=== PATIENT | female | born 1960 | race Caucasian/White ===

== ENCOUNTER 2025-01-13 10:05 | Outpatient (CLI) | payer OTHER | END 2025-01-13 10:06 | disposition home or self-care (01) | LOC: SCSMRI 10:05 → BICMRI 10:06 | PROVIDERS: ATTEND Family Medicine | DX: M47.22 Other spondylosis with radiculopathy, cervical region (principal); M48.061 Spinal stenosis, lumbar region without neurogenic claudication | CPT/HCPCS: 72141 ==

== ENCOUNTER 2025-05-29 08:11 | Outpatient (CLI) | payer OTHER ==
[2025-05-29 08:52] LABS: Estimated GFR - POC 95.0
[2025-05-29] MEDS ORDERED: Iopamidol 370 76% 100 ML VIAL ONE (11:08)
== END 2025-05-29 08:12 | disposition home or self-care (01) ==
LOC: CT 08:11
PROVIDERS: ATTEND Physician Assistant Medical
DX: K21.9 Gastro-esophageal reflux disease without esophagitis (principal); K29.70 Gastritis, unspecified, without bleeding; K44.9 Diaphragmatic hernia without obstruction or gangrene; R10.13 Epigastric pain; R19.4 Change in bowel habit; K76.0 Fatty (change of) liver, not elsewhere classified
CPT/HCPCS: 36415; 74177; 82565